=== PATIENT | male | born 1945 | race Caucasian/White ===

== ENCOUNTER 2020-02-14 10:54 | Emergency (ER) | payer OTHER, MEDICARE ==
[2020-02-14] MEDS ORDERED: Sodium Chloride 0.9% 500 ML IV ONE (11:18)
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
[2020-02-14] MEDS ORDERED: Iopamidol 612 MG/ML 100 ML Bottle IVPUSH ONE (11:34)
[2020-02-14] MEDS ORDERED: Sodium Chloride 0.9% 10 ML Syringe FLUSH PRN (11:34)
[2020-02-14] MEDS ORDERED: Iopamidol 612 MG/ML 50 ML SDV IVPUSH ONE (11:34)
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
[2020-02-14] MEDS ORDERED: Acetaminophen 325 MG Tab PO ONE (13:12)
== END 2020-02-14 14:29 | disposition home or self-care (01) ==
LOC: JD.ED 10:54
DX: M54.5 Low back pain (principal); Z88.1 Allergy status to other antibiotic agents; Z88.0 Allergy status to penicillin; Z88.2 Allergy status to sulfonamides; Z79.82 Long term (current) use of aspirin; Z79.899 Other long term (current) drug therapy; V48.5XXA Car driver injured in noncollision transport accident in traffic accident, initial encounter; Y92.410 Unspecified street and highway as the place of occurrence of the external cause
CPT/HCPCS: 36415; 70450; 71260; 72125; 74177; 80053; 81003; 85025; 99285; A9270; J7030; Q9967; 99283